=== PATIENT | female | born 2005 | race Hispanic/Latino ===

== ENCOUNTER 2024-05-12 14:59 | Emergency (ER) | payer MEDICAID, OTHER ==
[~2024-05-12] VITALS: Ht 157.5 cm; Wt 56.7 kg
[2024-05-12 15:37] LABS: RAPID GROUP A STREP negative (NEGATIVE)
[2024-05-12 15:41] LABS: SARS-CoV-2, RNA, NAAT NEGATIVE SARS CoV-2 (NEGATIVE)
[2024-05-12 16:45] LABS: INFLUENZA TYPE A Negative For Type A (NEGATIVE); INFLUENZA TYPE B Negative For Type B (NEGATIVE)
[2024-05-12] MEDS ORDERED: AZIT250T9 PO (17:01)
[2024-05-12] MEDS ORDERED: BENZ-39 PO (17:01)
[2024-05-12 18:27] VITALS: BP 115/64; PULSE 79; RESP 18; O2SAT 99
== END 2024-05-12 18:28 | disposition home or self-care (01) ==
LOC: EDH 14:59
DX: B34.9 Viral infection, unspecified (principal); Z20.822 Contact with and (suspected) exposure to COVID-19
CPT/HCPCS: 87635; 87804; 87880